=== PATIENT | male | born 1970 | race Caucasian/White ===

== ENCOUNTER 2024-09-08 18:55 | Emergency (ER) | payer OTHER, BC ==
[~2024-09-08] VITALS: Ht 175.3 cm; Wt 151.9 kg
[2024-09-08] MEDS ORDERED: Mupirocin22 GM TOP (19:23)
== END 2024-09-08 19:25 | disposition home or self-care (01) ==
LOC: ER 18:55
DX: S61.452A Open bite of left hand, initial encounter (principal); W54.0XXA Bitten by dog, initial encounter; Z79.899 Other long term (current) drug therapy
CPT/HCPCS: 99283